=== PATIENT | female | born 1990 | race Caucasian/White ===

== ENCOUNTER 2017-12-30 06:13 | Inpatient (IN) | payer MEDICAID ==
[~2017-12-30] VITALS: Ht 165.1 cm; Wt 99.8 kg
[2017-12-30 06:22] VITALS: BP 110/62
[2017-12-30] MEDS ORDERED: CELEXA40 MG PO (06:26)
[2017-12-30 06:43] LABS: HEMATOCRIT 35.5 % (37.0-47.0); HEMOGLOBIN 12.1 gm/dL (12.0-15.0); MCH 33.3 pg (26.0-34.0); MCHC 34.2 g/dL (28.0-37.0); MCV 97.3 fL (80.0-100.0); NUCLEATED RBCS 0 /100WBC; PLATELET COUNT* 214 thou/uL (150-400); RBC 3.64 mil/uL (4.20-5.00); RDW-CV 12.8 % (10.5-14.5); WBC 15.2 thou/uL (4.0-11.0)
[2017-12-30 06:48] LABS: CALCIUM 8.5 mg/dL (8.5-10.1); CREATININE 0.9 mg/dL (0.6-1.3)
[2017-12-30 06:50] LABS: URINE BILIRUBIN NEGATIVE (Negative); URINE BLOOD 1+ (Negative); URINE CLARITY SL CLOUDY; URINE COLOR YELLOW; URINE GLUCOSE-RANDOM NEGATIVE (Negative); URINE KETONES NEGATIVE (Negative); URINE PROTEIN 2+ (Negative)
[2017-12-30 06:51] LABS: URINE LEUKOCYTES-REFLEX 2+ (Negative); URINE NITRITE-REFLEX POSITIVE (Negative)
[2017-12-30 07:07] LABS: BACTERIA-REFLEX >30 Many /HPF (None Seen); CASTS None Seen /LPF (None Seen); CRYSTALS None Seen /LPF (None Seen); MUCUS None Seen strn/LPF (None Seen); SQUAMOUS 0-3 Few /LPF (0-3); URINE RBC 3-10 Few /HPF (0-2); URINE WBC-REFLEX >25 Many /HPF (0-5)
[2017-12-30 07:36] LABS: ABSOLUTE EOSINOPHILS 0.2 thou/uL (0.0-0.7); ABSOLUTE LYMPHOCYTES 0.5 thou/uL (0.8-5.3); ABSOLUTE MONOCYTES 1.1 thou/uL (0.0-1.2); ABSOLUTE NEUTROPHILS 13.5 thou/uL (1.6-8.1)
[2017-12-30 07:37] LABS: PLATELET ESTIMATE ADEQUATE
[2017-12-30] MEDS ORDERED: HYDROCODON-ACE1 EAC7 PO (08:54)
[2017-12-30] MEDS ORDERED: KEFLEX500 M1 PO (08:54)
[2017-12-30] MEDS ORDERED: K EFFERVESCENT25 MEQ PO (08:56)
[2017-12-30 09:52] VITALS: BP 119/65
[2017-12-30 10:09] VITALS: BP 93/48
[2017-12-30 11:50] LABS: AMP/METHAMP Negative (Negative); BARBITURATES Negative (Negative); BENZODIAZEPINES Negative (Negative); COCAINE Negative (Negative); METHADONE Negative (Negative); OPIATES POSITIVE (Negative); PCP Negative (Negative); THC Negative (Negative)
[2017-12-30 16:46] VITALS: BP 108/55
--- NOTE | 2017-12-30 18:57 | NUR ---
PATIENT ARRIVED ON UNIT FROM ER AT 1130. COMPLETED ADMISSION ASSESSMENT AND HISTORY. REMAINED ALERT AND ORIENTED X'S 4. VITAL SIGNS AND SPO2 STABLE. IV CLEAN, FLUIDS INFUSING. PAIN GETTING UNDER CONTROL SHIFT HAS GONE ON. GAVE PAIN MEDS PIGGYBACKED Q.2 AND PAIN HAS GONE FROM 10/10 TO 7/10. TOLERATED DIET, NO NAUSEA AND VOMITING. UP AD [place]. VOIDED WITHOUT ISSUE. COMPLETED HOURLY ROUNDING. CALL LIGHT WITHIN REACH. WILL CONTINUE TO MONITOR.
[2017-12-31 00:54] VITALS: BP 103/55
--- NOTE | 2017-12-31 04:23 | NUR ---
PATIENT ORIENTED X4 ON HOURLY ROUNDS. UP AD [place]. MEDICATED FOR PAIN WITH BOTH FENTANYL AND HYDROCODONE, PARTIAL RESULTS REPORTED. IVF INFUSING ORDERED. TOLERATING DIET. DENIES NAUSEA. POSITIVE BLOOD CULTURE RESULTS CALLED TO DR. KAUFMAN AT APPROX 1930, ORDERS RECEIVED FOR REPEAT BLOOD CULTURES. WILL CONTINUE TO MONITOR.
[2017-12-31 05:36] LABS: ABSOLUTE EOSINOPHILS 0.1 thou/uL (0.0-0.7); ABSOLUTE LYMPHOCYTES 1.7 thou/uL (0.8-5.3); ABSOLUTE MONOCYTES 1.1 thou/uL (0.0-1.2); ABSOLUTE NEUTROPHILS 8.7 thou/uL (1.6-8.1); BASOPHILS 0.3 %; EOSINOPHILS 0.5 %; HEMATOCRIT 30.5 % (37.0-47.0); HEMOGLOBIN 10.3 gm/dL (12.0-15.0); LYMPHOCYTES 14.7 %; MCH 33.3 pg (26.0-34.0); MCHC 33.9 g/dL (28.0-37.0); MCV 98.1 fL (80.0-100.0); MONOCYTES 9.1 %; NUCLEATED RBCS 0 /100WBC; PLATELET COUNT* 167 thou/uL (150-400); POLYS 75.4 %; RBC 3.11 mil/uL (4.20-5.00); RDW-CV 13.2 % (10.5-14.5); WBC 11.6 thou/uL (4.0-11.0)
[2017-12-31 05:55] LABS: CALCIUM 7.6 mg/dL (8.5-10.1); CREATININE 0.7 mg/dL (0.6-1.3); POTASSIUM 3.5 mmol/L (3.5-5.1)
[2017-12-31 07:44] VITALS: BP 109/52
--- NOTE | 2017-12-31 15:00 | NUR ---
PT.IN ALOT OF PAIN. STATED SHE LIVES WITH HER BOYFRIEND. SHE THINKS SHE HAD INSURANCE UNDER THE AFFORD[employer] C[employer] ACT BUT SAID THEY NEVER RECEIVED INS.CARDS IN MAIL. TOLD HER SHE WOULD NEED TO CALL INSURANCE CO. TO REQUEST NEW CARDS, OUR ADMITTING DEPT HAS NO WAY TO LOOK INSURANCES UP WITH OUT POLICY NUMBERS. GAVE PT. PACKET FOR THE UNINSURED. SHE DID NOT FEEL LIKE TALKING ANY LONGER DUE TO PAIN. CM WILL SEE AGAIN IF NEEDED.
[2017-12-31 15:56] VITALS: BP 115/67
--- NOTE | 2017-12-31 17:50 | NUR ---
ASSUMED CARE OF PATIRNT AFTER MORNING REPORT. ALERT AND ORIENTED X4. ASSESSMENT COMPLETED AND CHARTED. VSS ON ROOM AIR. PATIENT HAS HAD NO COMPLAINTS OF PAIN THIS SHIFT. PAIN HAS BEEN MANAGED WITH PAIN MEDICATION. PATIENT RATED PAIN 9 OUT OF 10 ON A SCALE OF 0-10 EVEN AFTER GIVEN FENTANYL IV AND OXYCODONE PO. PATIENT HAS HAD SUPPORTIVE FAMILY AT BEDSIDE THROUGHOUT SHIFT. FLUIDS AND ANTIBIOTICS INFUSED ORDERED. HOURLY ROUNDS HAVE BEEN MAINTAINED. CALL LIGHT IS WITHIN REACH. NURSING WILL CONTINUE TO MONITOR.
[2017-12-31 20:05] VITALS: BP 113/75
[2018-01-01] VITALS: BP 107/57
[2018-01-01 04:32] LABS: ABSOLUTE EOSINOPHILS 0.1 thou/uL (0.0-0.7); ABSOLUTE LYMPHOCYTES 1.2 thou/uL (0.8-5.3); ABSOLUTE MONOCYTES 0.5 thou/uL (0.0-1.2); ABSOLUTE NEUTROPHILS 5.5 thou/uL (1.6-8.1); BASOPHILS 0.3 %; EOSINOPHILS 1.5 %; HEMATOCRIT 29.6 % (37.0-47.0); LYMPHOCYTES 16.8 %; MCH 33.4 pg (26.0-34.0); MCHC 33.9 g/dL (28.0-37.0); MCV 98.5 fL (80.0-100.0); MONOCYTES 6.3 %; MPV 8.7 fl. (7.2-11.1); NUCLEATED RBCS 0 /100WBC; PLATELET COUNT* 156 thou/uL (150-400); POLYS 75.1 %; RDW-CV 13.1 % (10.5-14.5); WBC 7.4 thou/uL (4.0-11.0)
[2018-01-01 04:49] LABS: ALBUMIN 2.6 g/dL (3.4-5.0); CALCIUM 7.8 mg/dL (8.5-10.1); CREATININE 0.6 mg/dL (0.6-1.3); POTASSIUM 3.4 mmol/L (3.5-5.1); TOTAL BILIRUBIN 0.2 mg/dL (<0.1-1.0); TOTAL PROTEIN 6.3 g/dL (6.4-8.2)
--- NOTE | 2018-01-01 05:41 | NUR ---
PATIENT ALERT AND ORIENTED. VITALS STABLE. RA. LOW GRADE FEVER OVERNIGHT, TYLENOL GIVEN. RATES PAIN A 9/10. PO AND IV PAIN MEDICATION GIVEN. UP INDEPENDENTLY. FAMILY AT BEDSIDE. DENIES NAUSEA. FLUIDS INFUSING PER ORDER. HOURLY ROUNDS. NURSING WILL CONTINUE TO MONITOR.
[2018-01-01 08:05] VITALS: BP 129/76
[2018-01-01 15:02] VITALS: BP 129/76
[2018-01-01] MEDS ORDERED: CIPRO500 MG PO (15:07)
--- NOTE | 2018-01-01 15:53 | NUR ---
ASSUMED CARE OF PATIENT AFTER MORNING REPORT. ALERT AND ORIENTED X4. ASSESSMENT COMPLETED AND CHARTED. VSS ON ROOM AIR. PATIENT HAD MINIMAL COMPLAINTS OF NAUSEA WHICH WAS MANAGED WITH MEDICATION. COMPLAINTS OF CONSTANT PAIN. PATIENT GIVEN DILAUDID EVERY 4 HOURS AND OXYCODONE EVERY 6 HOURS. PATIENT RATED HER PAIN AY 9 OUT OF 10 EVEN AFTER GIVEN MEDICATION. FLUIDS AND ANTIBIOTICS INFUSED ORDERED. PATIENT DISCHARGED AT 1515 WITH EXTENDED FAMILY. ALL PERSONAL BELONGINGS LEFT WITH PATIENT. PRESCRIPTION AND DICHARGE INFORMATION SENT WITH PATIENT UPON DISCHARGE.
== END 2018-01-01 15:15 | disposition home or self-care (01) | DRG 872 ==
LOC: M.ERS 06:13 → M.ORTHSURG 09:19 → M.TBA-ER 09:19 → M.ORTHSURG 09:33
PROVIDERS: Personal Emergency Response Attendant; ADMIT Internal Medicine
DX: A41.9 Sepsis, unspecified organism (principal); N12 Tubulo-interstitial nephritis, not specified as acute or chronic; F32.9 Major depressive disorder, single episode, unspecified; F90.9 Attention-deficit hyperactivity disorder, unspecified type; K21.9 Gastro-esophageal reflux disease without esophagitis; J45.909 Unspecified asthma, uncomplicated; F17.210 Nicotine dependence, cigarettes, uncomplicated; E87.6 Hypokalemia; E86.0 Dehydration; M54.89 Other dorsalgia; Z88.6 Allergy status to analgesic agent; Z88.1 Allergy status to other antibiotic agents; Z88.8 Allergy status to other drugs, medicaments and biological substances

== ENCOUNTER 2018-06-07 18:35 | Emergency (ER) | payer OTHER, MEDICAID ==
[~2018-06-07] VITALS: Ht 165.1 cm; Wt 108.9 kg
[~2018-06-07 18:35] MED LIST: CELEXA40 MG PO; CIPRO500 MG PO; HYDROCODON-ACE1 EAC7 PO; K EFFERVESCENT25 MEQ PO; KEFLEX500 M1 PO
[2018-06-07] MEDS ORDERED: ACCUNEB SO1.25 MG/1 INH (18:50)
[2018-06-07] MEDS ORDERED: NORCO 5-325 TA1 EAC1 PO (18:59)
[2018-06-07] MEDS ORDERED: PENICILLIN VK500 MG PO (18:59)
[2018-06-07 19:08] VITALS: BP 116/78
== END 2018-06-07 19:09 | disposition home or self-care (01) ==
LOC: M.ERS 18:35
DX: K04.7 Periapical abscess without sinus (principal); J45.909 Unspecified asthma, uncomplicated; K21.9 Gastro-esophageal reflux disease without esophagitis; F31.9 Bipolar disorder, unspecified; F90.9 Attention-deficit hyperactivity disorder, unspecified type; F17.210 Nicotine dependence, cigarettes, uncomplicated; Z88.1 Allergy status to other antibiotic agents; Z88.8 Allergy status to other drugs, medicaments and biological substances

== ENCOUNTER 2018-09-01 15:51 | Emergency (ER) | payer OTHER, MEDICAID ==
[~2018-09-01] VITALS: Ht 165.1 cm; Wt 108.9 kg
[~2018-09-01 15:51] MED LIST changes: +ACCUNEB SO1.25 MG/1 INH; +NORCO 5-325 TA1 EAC1 PO; +PENICILLIN VK500 MG PO
[2018-09-01 15:58] VITALS: BP 129/83
== END 2018-09-01 16:36 | disposition home or self-care (01) ==
LOC: M.ERS 15:51
DX: S61.411A Laceration without foreign body of right hand, initial encounter (principal); W26.8XXA Contact with other sharp object(s), not elsewhere classified, initial encounter; Y93.G3 Activity, cooking and baking; Y92.89 Other specified places as the place of occurrence of the external cause; Y99.8 Other external cause status; J45.909 Unspecified asthma, uncomplicated; K21.9 Gastro-esophageal reflux disease without esophagitis; F31.9 Bipolar disorder, unspecified; Z88.1 Allergy status to other antibiotic agents; Z88.8 Allergy status to other drugs, medicaments and biological substances

== ENCOUNTER 2018-10-03 11:44 | Emergency (ER) | payer OTHER, MEDICAID ==
[~2018-10-03] VITALS: Ht 165.1 cm; Wt 108.9 kg
[2018-10-03] MEDS ORDERED: GABAPENTIN 100100 MG PO (11:50)
[2018-10-03] MEDS ORDERED: HYDROCODONE-AP1 EAC6 PO (12:08)
[2018-10-03] MEDS ORDERED: BACTRIM DS TAB1 EACH PO (12:08)
[2018-10-03 12:30] VITALS: BP 121/73
== END 2018-10-03 12:30 | disposition home or self-care (01) ==
LOC: M.ERS 11:44
DX: L03.113 Cellulitis of right upper limb (principal); K21.9 Gastro-esophageal reflux disease without esophagitis; F90.9 Attention-deficit hyperactivity disorder, unspecified type; F31.9 Bipolar disorder, unspecified; J45.909 Unspecified asthma, uncomplicated; F41.0 Panic disorder [episodic paroxysmal anxiety]; F17.210 Nicotine dependence, cigarettes, uncomplicated; Z88.6 Allergy status to analgesic agent; Z88.8 Allergy status to other drugs, medicaments and biological substances; Z88.1 Allergy status to other antibiotic agents; Z86.14 Personal history of Methicillin resistant Staphylococcus aureus infection

== ENCOUNTER 2018-11-12 15:10 | Emergency (ER) | payer OTHER, MEDICAID ==
[~2018-11-12] VITALS: Ht 165.1 cm; Wt 108.9 kg
[~2018-11-12 15:10] MED LIST changes: +BACTRIM DS TAB1 EACH PO; +GABAPENTIN 100100 MG PO; +HYDROCODONE-AP1 EAC6 PO
[2018-11-12 15:15] VITALS: BP 134/72
[2018-11-12] MEDS ORDERED: NORCO 5-325 TA1 EAC1 PO (15:42)
== END 2018-11-12 15:52 | disposition home or self-care (01) ==
LOC: M.ERS 15:10
DX: M27.63 Post-osseointegration mechanical failure of dental implant (principal); K02.9 Dental caries, unspecified; J45.909 Unspecified asthma, uncomplicated; K21.9 Gastro-esophageal reflux disease without esophagitis; F90.9 Attention-deficit hyperactivity disorder, unspecified type; F31.9 Bipolar disorder, unspecified; F41.0 Panic disorder [episodic paroxysmal anxiety]; Z88.8 Allergy status to other drugs, medicaments and biological substances; Z88.6 Allergy status to analgesic agent; Z86.14 Personal history of Methicillin resistant Staphylococcus aureus infection

== ENCOUNTER 2019-01-28 17:14 | Emergency (ER) | payer OTHER, MEDICAID ==
[~2019-01-28] VITALS: Ht 165.1 cm; Wt 108.9 kg
[~2019-01-28 17:14] MED LIST changes: +ROBAXIN500 MG PO
[2019-01-28 18:40] LABS: INFLUENZA B ANTIGEN None Detected (None Detect)
[2019-01-28] MEDS ORDERED: VENTOLIN HFA 1818 GM INH (18:50)
[2019-01-28] MEDS ORDERED: ACETAMINOPHEN-1 EAC1 PO (18:50)
[2019-01-28] MEDS ORDERED: OSELB75 PO (18:50)
[2019-01-28] MEDS ORDERED: ONDANSETRON HCL4 M2 PO (18:50)
[2019-01-28 19:15] VITALS: BP 120/76
== END 2019-01-28 19:15 | disposition home or self-care (01) ==
LOC: M.ERS 17:14
PROVIDERS: Nurse Practitioner Family
DX: J10.1 Influenza due to other identified influenza virus with other respiratory manifestations (principal); J45.909 Unspecified asthma, uncomplicated; K21.9 Gastro-esophageal reflux disease without esophagitis; F90.9 Attention-deficit hyperactivity disorder, unspecified type; F31.9 Bipolar disorder, unspecified; F41.0 Panic disorder [episodic paroxysmal anxiety]; Z88.8 Allergy status to other drugs, medicaments and biological substances; Z88.1 Allergy status to other antibiotic agents; Z88.6 Allergy status to analgesic agent

== ENCOUNTER 2019-08-06 20:42 | Emergency (ER) | payer OTHER ==
[~2019-08-06] VITALS: Ht 165.1 cm; Wt 107.5 kg
[~2019-08-06 20:42] MED LIST changes: +ACETAMINOPHEN-1 EAC1 PO; +ONDANSETRON HCL4 M2 PO; +OSELB75 PO; +VENTOLIN HFA 1818 GM INH
[2019-08-06] MEDS ORDERED: PRENATAL PO (20:54)
[2019-08-06 21:16] LABS: ABSOLUTE BASOPHILS 0.2 thou/uL (0.0-0.2); ABSOLUTE EOSINOPHILS 0.6 thou/uL (0.0-0.7); ABSOLUTE LYMPHOCYTES 2.8 thou/uL (0.8-5.3); ABSOLUTE MONOCYTES 0.8 thou/uL (0.0-1.2); ABSOLUTE NEUTROPHILS 7.1 thou/uL (1.6-8.1); BASOPHILS 1.5 %; EOSINOPHILS 5.6 %; HEMOGLOBIN 12.5 gm/dL (12.0-15.0); LYMPHOCYTES 24.7 %; MCH 33.4 pg (26.0-34.0); MCHC 34.8 g/dL (28.0-37.0); MONOCYTES 6.8 %; NUCLEATED RBCS 0 /100WBC; PLATELET COUNT* 210 thou/uL (150-400); POLYS 61.4 %; RBC 3.76 mil/uL (4.20-5.00); RDW-CV 13.2 % (10.5-14.5); WBC 11.5 thou/uL (4.0-11.0)
[2019-08-06 21:25] LABS: CALCIUM 9.1 mg/dL (8.5-10.1); CREATININE 0.8 mg/dL (0.6-1.3); POTASSIUM 3.6 mmol/L (3.5-5.1)
[2019-08-06 21:30] LABS: ALBUMIN 3.5 g/dL (3.4-5.0); TOTAL BILIRUBIN 0.1 mg/dL (<0.1-1.0); TOTAL PROTEIN 6.9 g/dL (6.4-8.2)
[2019-08-06] MEDS ORDERED: [UNRECOGNIZED DRUG - OTHER] PO (23:01)
[2019-08-06 23:49] VITALS: BP 111/60
== END 2019-08-06 23:51 | disposition home or self-care (01) ==
LOC: M.ERS 20:42
PROVIDERS: Personal Emergency Response Attendant
DX: O21.0 Mild hyperemesis gravidarum (principal); J45.909 Unspecified asthma, uncomplicated; K21.9 Gastro-esophageal reflux disease without esophagitis; F90.9 Attention-deficit hyperactivity disorder, unspecified type; F31.9 Bipolar disorder, unspecified; F41.0 Panic disorder [episodic paroxysmal anxiety]; Z88.8 Allergy status to other drugs, medicaments and biological substances; Z88.6 Allergy status to analgesic agent; Z3A.01 Less than 8 weeks gestation of pregnancy

== ENCOUNTER 2019-08-13 18:15 | Emergency (ER) | payer OTHER ==
[~2019-08-13] VITALS: Ht 165.1 cm; Wt 107.5 kg
[~2019-08-13 18:15] MED LIST changes: +PRENATAL PO; +[UNRECOGNIZED DRUG - OTHER] PO
[2019-08-13 18:23] VITALS: BP 123/74
== END 2019-08-13 19:17 | disposition left against medical advice (07) ==
LOC: M.ERS 18:15
DX: Z53.21 Procedure and treatment not carried out due to patient leaving prior to being seen by health care provider (principal)

== ENCOUNTER 2019-09-23 18:53 | Emergency (ER) | payer OTHER, MEDICAID ==
[~2019-09-23] VITALS: Ht 165.1 cm; Wt 108.0 kg
[2019-09-23 19:29] LABS: URINE BILIRUBIN NEGATIVE (Negative); URINE BLOOD TRACE (Negative); URINE CLARITY CLEAR; URINE COLOR YELLOW; URINE GLUCOSE-RANDOM NEGATIVE (Negative); URINE KETONES NEGATIVE (Negative); URINE LEUKOCYTES-REFLEX 1+ (Negative); URINE NITRITE-REFLEX NEGATIVE (Negative); URINE PROTEIN NEGATIVE (Negative); URINE UROBILINOGEN 0.2 E.U./dl (0.2-1.0)
[2019-09-23 19:33] LABS: AMP/METHAMP Negative (Negative); BARBITURATES Negative (Negative); BENZODIAZEPINES Negative (Negative); COCAINE Negative (Negative); METHADONE Negative (Negative); OPIATES POSITIVE (Negative); PCP Negative (Negative); THC Negative (Negative)
[2019-09-23 19:39] LABS: SQUAMOUS >10 Many /LPF (0-3)
[2019-09-23 19:40] LABS: CASTS None Seen /LPF (None Seen); CRYSTALS None Seen /LPF (None Seen); MUCUS 0-3 Light strn/LPF (None Seen); URINE RBC 0-2 Rare /HPF (0-2)
[2019-09-23 19:45] LABS: ABSOLUTE EOSINOPHILS 0.2 thou/uL (0.0-0.7); ABSOLUTE LYMPHOCYTES 2.1 thou/uL (0.8-5.3); ABSOLUTE MONOCYTES 0.7 thou/uL (0.0-1.2); ABSOLUTE NEUTROPHILS 7.9 thou/uL (1.6-8.1); BASOPHILS 0.4 %; EOSINOPHILS 1.5 %; HEMATOCRIT 33.4 % (37.0-47.0); LYMPHOCYTES 19.3 %; MCH 34.9 pg (26.0-34.0); MCHC 36.1 g/dL (28.0-37.0); MCV 96.8 fL (80.0-100.0); MONOCYTES 6.2 %; MPV 8.9 fl. (7.2-11.1); NUCLEATED RBCS 0 /100WBC; PLATELET COUNT* 202 thou/uL (150-400); POLYS 72.6 %; RBC 3.45 mil/uL (4.20-5.00); RDW-CV 12.8 % (10.5-14.5); WBC 10.9 thou/uL (4.0-11.0)
[2019-09-23 19:56] LABS: CALCIUM 8.3 mg/dL (8.5-10.1); CREATININE 0.5 mg/dL (0.6-1.3); POTASSIUM 3.5 mmol/L (3.5-5.1)
[2019-09-23 20:00] LABS: ALBUMIN 3.1 g/dL (3.4-5.0); TOTAL BILIRUBIN 0.1 mg/dL (<0.1-1.0); TOTAL PROTEIN 6.8 g/dL (6.4-8.2)
[2019-09-24 00:04] VITALS: BP 100/53
== END 2019-09-24 00:06 | disposition short-term general hospital (02) ==
LOC: M.ERS 18:53
PROVIDERS: Emergency Medicine
DX: O23.41 Unspecified infection of urinary tract in pregnancy, first trimester (principal); O99.341 Other mental disorders complicating pregnancy, first trimester; O99.611 Diseases of the digestive system complicating pregnancy, first trimester; O99.331 Smoking (tobacco) complicating pregnancy, first trimester; Z88.5 Allergy status to narcotic agent; Z88.6 Allergy status to analgesic agent; Z88.8 Allergy status to other drugs, medicaments and biological substances; Z3A.13 13 weeks gestation of pregnancy; Z79.899 Other long term (current) drug therapy

== ENCOUNTER 2019-10-19 19:51 | Emergency (ER) | payer OTHER, MEDICAID ==
[~2019-10-19] VITALS: Ht 165.1 cm; Wt 108.9 kg
[2019-10-19] MEDS ORDERED: KEFLEX500 M2 PO (20:02)
[2019-10-19] MEDS ORDERED: AMOXICILLIN 50500 MG PO (20:10)
[2019-10-19] MEDS ORDERED: DELSYM30 MG/5 M1 PO (20:13)
[2019-10-19 20:21] LABS: URINE BILIRUBIN NEGATIVE (Negative); URINE BLOOD TRACE (Negative); URINE CLARITY SL CLOUDY; URINE COLOR YELLOW; URINE GLUCOSE-RANDOM NEGATIVE (Negative); URINE KETONES NEGATIVE (Negative); URINE LEUKOCYTES-REFLEX 1+ (Negative); URINE NITRITE-REFLEX NEGATIVE (Negative); URINE PROTEIN NEGATIVE (Negative); URINE UROBILINOGEN 0.2 E.U./dl (0.2-1.0)
[2019-10-19 20:26] LABS: SQUAMOUS >10 Many /LPF (0-3)
[2019-10-19 20:27] LABS: BACTERIA-REFLEX >30 Many /HPF (None Seen); URINE RBC 3-10 Few /HPF (0-2); URINE WBC-REFLEX 6-15 Few /HPF (0-5)
[2019-10-19 20:28] LABS: AMORPHOUS URATES Few /LPF (None Seen); CASTS None Seen /LPF (None Seen); YEAST-REFLEX Present (None Seen)
[2019-10-19 20:29] LABS: MUCUS 4-6 Moderate strn/LPF (None Seen)
[2019-10-19 20:32] VITALS: BP 138/71
== END 2019-10-19 20:35 | disposition home or self-care (01) ==
LOC: M.ERS 19:51
PROVIDERS: Nurse Practitioner Psychiatric/Mental Health
DX: O99.512 Diseases of the respiratory system complicating pregnancy, second trimester (principal); O26.892 Other specified pregnancy related conditions, second trimester; R59.1 Generalized enlarged lymph nodes; O99.612 Diseases of the digestive system complicating pregnancy, second trimester; O99.342 Other mental disorders complicating pregnancy, second trimester; O99.332 Smoking (tobacco) complicating pregnancy, second trimester; Z86.14 Personal history of Methicillin resistant Staphylococcus aureus infection; Z88.5 Allergy status to narcotic agent; Z88.6 Allergy status to analgesic agent; Z88.8 Allergy status to other drugs, medicaments and biological substances; Z79.899 Other long term (current) drug therapy; Z3A.16 16 weeks gestation of pregnancy

== ENCOUNTER 2020-05-06 00:58 | Emergency (ER) | payer OTHER, MEDICAID ==
[~2020-05-06] VITALS: Ht 165.1 cm; Wt 88.0 kg
[~2020-05-06 00:58] MED LIST changes: +AMOXICILLIN 50500 MG PO; +DELSYM30 MG/5 M1 PO; +KEFLEX500 M2 PO
[2020-05-06] MEDS ORDERED: CELEXA 20 MG TA20 MG PO (01:09)
[2020-05-06 01:11] LABS: URINE BILIRUBIN NEGATIVE (Negative); URINE BLOOD NEGATIVE (Negative); URINE CLARITY CLEAR; URINE COLOR YELLOW; URINE GLUCOSE-RANDOM NEGATIVE (Negative); URINE KETONES NEGATIVE (Negative); URINE LEUKOCYTES-REFLEX TRACE (Negative); URINE NITRITE-REFLEX NEGATIVE (Negative); URINE PROTEIN NEGATIVE (Negative); URINE SPECIFIC GRAVITY 1.015 (1.005-1.030); URINE UROBILINOGEN 0.2 E.U./dl (0.2-1.0)
[2020-05-06 01:21] LABS: BACTERIA-REFLEX 1-9 Few /HPF (None Seen); CASTS None Seen /LPF (None Seen); CRYSTALS None Seen /LPF (None Seen); MUCUS 0-3 Light strn/LPF (None Seen); SQUAMOUS 0-3 Few /LPF (0-3); URINE RBC 0-2 Rare /HPF (0-2); URINE WBC-REFLEX 0-5 Rare /HPF (0-5)
[2020-05-06 01:33] LABS: ABSOLUTE BASOPHILS 0.2 thou/uL (0.0-0.2); ABSOLUTE EOSINOPHILS 0.5 thou/uL (0.0-0.7); ABSOLUTE LYMPHOCYTES 3.8 thou/uL (0.8-5.3); ABSOLUTE MONOCYTES 0.7 thou/uL (0.0-1.2); ABSOLUTE NEUTROPHILS 10.6 thou/uL (1.6-8.1); HEMATOCRIT 33.8 % (37.0-47.0); HEMOGLOBIN 11.7 gm/dL (12.0-15.0); MCH 33.4 pg (26.0-34.0); MCHC 34.6 g/dL (28.0-37.0); MCV 96.4 fL (80.0-100.0); MONOCYTES 4.4 %; MPV 9.4 fl. (7.2-11.1); NUCLEATED RBCS 0 /100WBC; PLATELET COUNT* 250 thou/uL (150-400); POLYS 67.6 %; RDW-CV 13.3 % (10.5-14.5); WBC 15.7 thou/uL (4.0-11.0)
[2020-05-06 01:38] LABS: CALCIUM 8.5 mg/dL (8.5-10.1); CREATININE 0.9 mg/dL (0.6-1.3); POTASSIUM 3.4 mmol/L (3.5-5.1)
[2020-05-06 02:20] LABS: AMP/METHAMP Negative (Negative); BARBITURATES Negative (Negative); BENZODIAZEPINES Negative (Negative); COCAINE Negative (Negative); METHADONE Negative (Negative); OPIATES POSITIVE (Negative); PCP Negative (Negative); THC Negative (Negative)
[2020-05-06] MEDS ORDERED: MACROBID 100 M100 M1 PO (03:25)
[2020-05-06] MEDS ORDERED: LORCET 5-325 M1 EACH PO (03:25)
[2020-05-06 03:35] VITALS: BP 99/60
== END 2020-05-06 03:35 | disposition home or self-care (01) ==
LOC: M.ERS 00:58
PROVIDERS: Emergency Medicine
DX: R10.31 Right lower quadrant pain (principal); J45.909 Unspecified asthma, uncomplicated; K21.9 Gastro-esophageal reflux disease without esophagitis; Z88.5 Allergy status to narcotic agent; Z88.1 Allergy status to other antibiotic agents; Z88.6 Allergy status to analgesic agent; Z88.8 Allergy status to other drugs, medicaments and biological substances; Z79.899 Other long term (current) drug therapy; Z87.442 Personal history of urinary calculi

== ENCOUNTER 2020-05-28 21:34 | Emergency (ER) | payer OTHER, MEDICAID ==
[~2020-05-28] VITALS: Ht 165.1 cm; Wt 89.8 kg
[~2020-05-28 21:34] MED LIST changes: +CELEXA 20 MG TA20 MG PO; +LORCET 5-325 M1 EACH PO; +MACROBID 100 M100 M1 PO
[2020-05-28 22:11] LABS: ABSOLUTE BASOPHILS 0.1 thou/uL (0.0-0.2); ABSOLUTE EOSINOPHILS 0.5 thou/uL (0.0-0.7); ABSOLUTE LYMPHOCYTES 3.3 thou/uL (0.8-5.3); ABSOLUTE MONOCYTES 0.6 thou/uL (0.0-1.2); ABSOLUTE NEUTROPHILS 6.2 thou/uL (1.6-8.1); BASOPHILS 0.8 %; EOSINOPHILS 4.2 %; HEMATOCRIT 36.8 % (37.0-47.0); HEMOGLOBIN 12.6 gm/dL (12.0-15.0); MCH 32.9 pg (26.0-34.0); MCHC 34.3 g/dL (28.0-37.0); MCV 95.9 fL (80.0-100.0); MONOCYTES 5.6 %; MPV 9.1 fl. (7.2-11.1); NUCLEATED RBCS 0 /100WBC; PLATELET COUNT* 273 thou/uL (150-400); POLYS 58.4 %; RBC 3.84 mil/uL (4.20-5.00); RDW-CV 13.7 % (10.5-14.5); WBC 10.7 thou/uL (4.0-11.0)
[2020-05-28 22:15] LABS: CALCIUM 8.4 mg/dL (8.5-10.1); POTASSIUM 3.3 mmol/L (3.5-5.1)
[2020-05-28 22:22] LABS: ALBUMIN 3.7 g/dL (3.4-5.0); TOTAL BILIRUBIN 0.2 mg/dL (<0.1-1.0); TOTAL PROTEIN 7.2 g/dL (6.4-8.2)
[2020-05-28 22:45] LABS: URINE BILIRUBIN NEGATIVE (Negative); URINE BLOOD 1+ (Negative); URINE CLARITY CLEAR; URINE COLOR YELLOW; URINE GLUCOSE-RANDOM NEGATIVE (Negative); URINE KETONES NEGATIVE (Negative); URINE LEUKOCYTES-REFLEX NEGATIVE (Negative); URINE NITRITE-REFLEX NEGATIVE (Negative); URINE PROTEIN NEGATIVE (Negative); URINE UROBILINOGEN 0.2 E.U./dl (0.2-1.0)
[2020-05-28 23:01] LABS: CASTS None Seen /LPF (None Seen); MUCUS 4-6 Moderate strn/LPF (None Seen); SQUAMOUS >10 Many /LPF (0-3)
[2020-05-28 23:03] LABS: BACTERIA-REFLEX 1-9 Few /HPF (None Seen); CRYSTALS None Seen /LPF (None Seen); URINE RBC 0-2 Rare /HPF (0-2); URINE WBC-REFLEX 0-5 Rare /HPF (0-5)
[2020-05-28 23:07] LABS: AMP/METHAMP Negative (Negative); BARBITURATES Negative (Negative); BENZODIAZEPINES Negative (Negative); COCAINE Negative (Negative); METHADONE Negative (Negative); OPIATES POSITIVE (Negative); PCP Negative (Negative); THC Negative (Negative)
[2020-05-28 23:35] VITALS: BP 112/70
== END 2020-05-28 23:37 | disposition home or self-care (01) ==
LOC: M.ERS 21:34
PROVIDERS: Personal Emergency Response Attendant
DX: G89.18 Other acute postprocedural pain (principal); R10.31 Right lower quadrant pain; J45.909 Unspecified asthma, uncomplicated; K21.9 Gastro-esophageal reflux disease without esophagitis; Z88.5 Allergy status to narcotic agent; Z88.1 Allergy status to other antibiotic agents; Z88.6 Allergy status to analgesic agent; Z88.8 Allergy status to other drugs, medicaments and biological substances; Z86.14 Personal history of Methicillin resistant Staphylococcus aureus infection; Z87.442 Personal history of urinary calculi; Z79.899 Other long term (current) drug therapy

== ENCOUNTER 2020-08-15 21:48 | Emergency (ER) | payer OTHER, MEDICAID ==
[~2020-08-15] VITALS: Ht 165.1 cm; Wt 93.0 kg
[2020-08-15] MEDS ORDERED: MEDROLDOSEPACK PO (23:36)
[2020-08-15] MEDS ORDERED: HYDROCODON-ACE1 EAC7 PO (23:36)
[2020-08-15] MEDS ORDERED: CYCLOBENZAPRINE5 MG PO (23:36)
[2020-08-15 23:52] VITALS: BP 147/82
== END 2020-08-15 23:53 | disposition home or self-care (01) ==
LOC: M.ERS 21:48
DX: M54.5 Low back pain (principal); E28.2 Polycystic ovarian syndrome; K21.9 Gastro-esophageal reflux disease without esophagitis; J45.909 Unspecified asthma, uncomplicated; F31.9 Bipolar disorder, unspecified; F41.9 Anxiety disorder, unspecified; F17.210 Nicotine dependence, cigarettes, uncomplicated; Z86.14 Personal history of Methicillin resistant Staphylococcus aureus infection; Z87.442 Personal history of urinary calculi; Z88.1 Allergy status to other antibiotic agents; Z88.6 Allergy status to analgesic agent; Z88.8 Allergy status to other drugs, medicaments and biological substances

== ENCOUNTER 2021-01-15 18:17 | Emergency (ER) | payer OTHER, MEDICAID ==
[~2021-01-15] VITALS: Ht 165.1 cm; Wt 99.8 kg
[~2021-01-15 18:17] MED LIST changes: +CYCLOBENZAPRINE5 MG PO; +MEDROLDOSEPACK PO
[2021-01-15] MEDS ORDERED: NORCO5 PO (19:30)
[2021-01-15] MEDS ORDERED: ZANAFLEX4 MG PO (19:30)
[2021-01-15 19:45] VITALS: BP 109/76
== END 2021-01-15 19:46 ==
LOC: M.ERS 18:17
DX: S46.812A Strain of other muscles, fascia and tendons at shoulder and upper arm level, left arm, initial encounter (principal); J45.909 Unspecified asthma, uncomplicated; K21.9 Gastro-esophageal reflux disease without esophagitis; Z86.14 Personal history of Methicillin resistant Staphylococcus aureus infection; Z87.442 Personal history of urinary calculi; Z98.51 Tubal ligation status; Z88.5 Allergy status to narcotic agent; Z88.1 Allergy status to other antibiotic agents; Z88.8 Allergy status to other drugs, medicaments and biological substances; X50.9XXA Other and unspecified overexertion or strenuous movements or postures, initial encounter; Y93.89 Activity, other specified; Y92.89 Other specified places as the place of occurrence of the external cause; Y99.8 Other external cause status

== ENCOUNTER 2021-03-24 22:16 | Emergency (ER) | payer OTHER, MEDICAID ==
[~2021-03-24] VITALS: Ht 165.1 cm; Wt 95.3 kg
[~2021-03-24 22:16] MED LIST changes: +NORCO5 PO; +ZANAFLEX4 MG PO
[2021-03-24] MEDS ORDERED: DEPO-PROVE150 MG/11 IM (23:02)
[2021-03-25 00:04] LABS: URINE BILIRUBIN NEGATIVE (Negative); URINE BLOOD NEGATIVE (Negative); URINE CLARITY CLEAR; URINE COLOR YELLOW; URINE GLUCOSE-RANDOM NEGATIVE (Negative); URINE KETONES NEGATIVE (Negative); URINE LEUKOCYTES-REFLEX NEGATIVE (Negative); URINE NITRITE-REFLEX NEGATIVE (Negative); URINE PROTEIN NEGATIVE (Negative); URINE SPECIFIC GRAVITY 1.015 (1.005-1.030); URINE UROBILINOGEN 0.2 E.U./dl (0.2-1.0)
[2021-03-25 00:11] LABS: HEMATOCRIT 39.4 % (37.0-47.0); HEMOGLOBIN 13.3 gm/dL (12.0-15.0); MCH 32.9 pg (26.0-34.0); MCHC 33.7 g/dL (28.0-37.0); MCV 97.6 fL (80.0-100.0); MPV 8.7 fl. (7.2-11.1); RBC 4.04 mil/uL (4.20-5.00); RDW-CV 12.8 % (10.5-14.5); WBC 10.7 thou/uL (4.0-11.0)
[2021-03-25 00:11] LABS: AMP/METHAMP Negative (Negative); BARBITURATES Negative (Negative); BENZODIAZEPINES Negative (Negative); COCAINE Negative (Negative); METHADONE Negative (Negative); OPIATES Negative (Negative); PCP Negative (Negative); THC Negative (Negative)
[2021-03-25 00:18] LABS: CREATININE 0.8 mg/dL (0.6-1.3); POTASSIUM 3.6 mmol/L (3.5-5.1)
[2021-03-25 00:23] LABS: ALBUMIN 3.6 g/dL (3.4-5.0); TOTAL BILIRUBIN 0.1 mg/dL (<0.1-1.0); TOTAL PROTEIN 6.9 g/dL (6.4-8.2)
[2021-03-25] MEDS ORDERED: ZOFRAN ODT4 MG PO (01:48)
[2021-03-25] MEDS ORDERED: BUTALB-APAP-CA1 EACH PO (01:48)
[2021-03-25 02:33] VITALS: BP 114/77
== END 2021-03-25 02:33 | disposition home or self-care (01) ==
LOC: M.ERS 22:16
PROVIDERS: Personal Emergency Response Attendant
DX: G43.909 Migraine, unspecified, not intractable, without status migrainosus (principal); R10.11 Right upper quadrant pain; J45.909 Unspecified asthma, uncomplicated; K21.9 Gastro-esophageal reflux disease without esophagitis; Z88.5 Allergy status to narcotic agent; Z88.1 Allergy status to other antibiotic agents; Z88.6 Allergy status to analgesic agent; Z88.8 Allergy status to other drugs, medicaments and biological substances; Z86.14 Personal history of Methicillin resistant Staphylococcus aureus infection; Z87.442 Personal history of urinary calculi; Z98.51 Tubal ligation status; Z79.899 Other long term (current) drug therapy

== ENCOUNTER 2021-03-27 16:20 | Emergency (ER) | payer OTHER, MEDICAID ==
[~2021-03-27] VITALS: Ht 165.1 cm; Wt 95.3 kg
[~2021-03-27 16:20] MED LIST changes: +BUTALB-APAP-CA1 EACH PO; +DEPO-PROVE150 MG/11 IM; +ZOFRAN ODT4 MG PO
[2021-03-27 16:37] LABS: URINE BILIRUBIN NEGATIVE (Negative); URINE BLOOD NEGATIVE (Negative); URINE CLARITY CLEAR; URINE COLOR YELLOW; URINE GLUCOSE-RANDOM NEGATIVE (Negative); URINE KETONES NEGATIVE (Negative); URINE LEUKOCYTES-REFLEX NEGATIVE (Negative); URINE NITRITE-REFLEX NEGATIVE (Negative); URINE PROTEIN NEGATIVE (Negative); URINE UROBILINOGEN 0.2 E.U./dl (0.2-1.0)
[2021-03-27 16:51] LABS: ABSOLUTE BASOPHILS 0.1 thou/uL (0.0-0.2); ABSOLUTE EOSINOPHILS 0.4 thou/uL (0.0-0.7); ABSOLUTE LYMPHOCYTES 2.2 thou/uL (0.8-5.3); ABSOLUTE MONOCYTES 0.7 thou/uL (0.0-1.2); ABSOLUTE NEUTROPHILS 6.4 thou/uL (1.6-8.1); BASOPHILS 0.8 %; EOSINOPHILS 4.1 %; HEMATOCRIT 40.4 % (37.0-47.0); HEMOGLOBIN 13.7 gm/dL (12.0-15.0); LYMPHOCYTES 22.4 %; MCH 33.1 pg (26.0-34.0); MCHC 33.8 g/dL (28.0-37.0); MCV 97.9 fL (80.0-100.0); MONOCYTES 7.1 %; MPV 8.6 fl. (7.2-11.1); NUCLEATED RBCS 0 /100WBC; PLATELET COUNT* 233 thou/uL (150-400); POLYS 65.6 %; RBC 4.13 mil/uL (4.20-5.00); RDW-CV 12.8 % (10.5-14.5); WBC 9.7 thou/uL (4.0-11.0)
[2021-03-27 16:59] LABS: CALCIUM 8.6 mg/dL (8.5-10.1); CREATININE 0.7 mg/dL (0.6-1.3); POTASSIUM 3.7 mmol/L (3.5-5.1)
[2021-03-27 17:09] LABS: ALBUMIN 3.9 g/dL (3.4-5.0); TOTAL BILIRUBIN 0.2 mg/dL (<0.1-1.0); TOTAL PROTEIN 7.5 g/dL (6.4-8.2)
[2021-03-27] MEDS ORDERED: LIDODERM1 EACH TOP (18:39)
[2021-03-27] MEDS ORDERED: METHOCARBAMOL500 M2 PO (18:39)
[2021-03-27 19:08] VITALS: BP 111/51
== END 2021-03-27 19:09 | disposition home or self-care (01) ==
LOC: M.ERS 16:20
PROVIDERS: Nurse Practitioner Family
DX: R10.11 Right upper quadrant pain (principal); J45.909 Unspecified asthma, uncomplicated; K21.9 Gastro-esophageal reflux disease without esophagitis; F90.9 Attention-deficit hyperactivity disorder, unspecified type; F31.9 Bipolar disorder, unspecified; F41.0 Panic disorder [episodic paroxysmal anxiety]; Z87.442 Personal history of urinary calculi; Z98.51 Tubal ligation status; Z86.14 Personal history of Methicillin resistant Staphylococcus aureus infection; Z87.42 Personal history of other diseases of the female genital tract; Z79.899 Other long term (current) drug therapy; Z88.5 Allergy status to narcotic agent; Z88.8 Allergy status to other drugs, medicaments and biological substances; Z88.1 Allergy status to other antibiotic agents; Z88.6 Allergy status to analgesic agent

== ENCOUNTER 2021-05-16 17:08 | Emergency (ER) | payer OTHER, MEDICAID ==
[~2021-05-16] VITALS: Ht 165.1 cm; Wt 108.9 kg
[~2021-05-16 17:08] MED LIST changes: +LIDODERM1 EACH TOP; +METHOCARBAMOL500 M2 PO
[2021-05-16] MEDS ORDERED: MEDROLDOSEPACK PO (18:37)
[2021-05-16] MEDS ORDERED: FLEXERIL PO (18:37)
[2021-05-16 18:46] VITALS: BP 117/80
== END 2021-05-16 18:48 | disposition home or self-care (01) ==
LOC: M.ERS 17:08
DX: M25.511 Pain in right shoulder (principal); K21.9 Gastro-esophageal reflux disease without esophagitis; Z88.5 Allergy status to narcotic agent; Z88.1 Allergy status to other antibiotic agents; Z88.6 Allergy status to analgesic agent; E28.2 Polycystic ovarian syndrome; Z87.442 Personal history of urinary calculi; Z98.51 Tubal ligation status; Z79.899 Other long term (current) drug therapy; W01.0XXA Fall on same level from slipping, tripping and stumbling without subsequent striking against object, initial encounter; Y93.89 Activity, other specified; Y92.89 Other specified places as the place of occurrence of the external cause; Y99.8 Other external cause status

== ENCOUNTER 2021-09-04 12:10 | Emergency (ER) | payer OTHER, MEDICAID ==
[~2021-09-04] VITALS: Ht 165.1 cm; Wt 99.8 kg
[~2021-09-04 12:10] MED LIST changes: +FLEXERIL PO
[2021-09-04 12:47] LABS: URINE BILIRUBIN NEGATIVE (Negative); URINE BLOOD NEGATIVE (Negative); URINE CLARITY CLEAR; URINE COLOR YELLOW; URINE GLUCOSE-RANDOM NEGATIVE (Negative); URINE KETONES NEGATIVE (Negative); URINE LEUKOCYTES-REFLEX NEGATIVE (Negative); URINE NITRITE-REFLEX NEGATIVE (Negative); URINE PROTEIN NEGATIVE (Negative); URINE UROBILINOGEN 0.2 E.U./dl (0.2-1.0)
[2021-09-04 12:57] LABS: ABSOLUTE BASOPHILS 0.1 thou/uL (0.0-0.2); ABSOLUTE EOSINOPHILS 0.2 thou/uL (0.0-0.7); ABSOLUTE LYMPHOCYTES 2.1 thou/uL (0.8-5.3); ABSOLUTE MONOCYTES 0.5 thou/uL (0.0-1.2); ABSOLUTE NEUTROPHILS 5.5 thou/uL (1.6-8.1); BASOPHILS 0.9 %; EOSINOPHILS 2.7 %; HEMATOCRIT 39.6 % (37.0-47.0); HEMOGLOBIN 13.6 gm/dL (12.0-15.0); LYMPHOCYTES 25.3 %; MCH 32.8 pg (26.0-34.0); MCHC 34.3 g/dL (28.0-37.0); MCV 95.7 fL (80.0-100.0); MONOCYTES 5.8 %; MPV 9.1 fl. (7.2-11.1); NUCLEATED RBCS 0 /100WBC; PLATELET COUNT* 226 thou/uL (150-400); POLYS 65.3 %; RBC 4.14 mil/uL (4.20-5.00); RDW-CV 12.7 % (10.5-14.5); WBC 8.5 thou/uL (4.0-11.0)
[2021-09-04 13:06] LABS: CALCIUM 8.5 mg/dL (8.5-10.1); CREATININE 0.8 mg/dL (0.6-1.3); POTASSIUM 3.8 mmol/L (3.5-5.1)
[2021-09-04 13:10] LABS: ALBUMIN 3.9 g/dL (3.4-5.0); TOTAL BILIRUBIN 0.2 mg/dL (<0.1-1.0); TOTAL PROTEIN 7.3 g/dL (6.4-8.2)
[2021-09-04] MEDS ORDERED: ONDANSETRON ODT4 MG PO (13:22)
[2021-09-04] MEDS ORDERED: LOPERAMIDE 2 MG2 M1 PO (13:22)
[2021-09-04 13:39] VITALS: BP 109/66
== END 2021-09-04 13:40 | disposition home or self-care (01) ==
LOC: M.ERS 12:10
PROVIDERS: Physician Assistant
DX: R11.2 Nausea with vomiting, unspecified (principal); R19.7 Diarrhea, unspecified; R10.13 Epigastric pain; K21.9 Gastro-esophageal reflux disease without esophagitis; F32.9 Major depressive disorder, single episode, unspecified; F90.9 Attention-deficit hyperactivity disorder, unspecified type; F41.0 Panic disorder [episodic paroxysmal anxiety]; Z86.14 Personal history of Methicillin resistant Staphylococcus aureus infection; Z87.442 Personal history of urinary calculi; Z98.51 Tubal ligation status; Z90.49 Acquired absence of other specified parts of digestive tract; Z79.899 Other long term (current) drug therapy; Z88.5 Allergy status to narcotic agent; Z88.8 Allergy status to other drugs, medicaments and biological substances; Z88.1 Allergy status to other antibiotic agents; Z88.6 Allergy status to analgesic agent

== ENCOUNTER 2021-09-23 15:50 | Emergency (ER) | payer OTHER, MEDICAID ==
[~2021-09-23] VITALS: Ht 165.1 cm; Wt 99.8 kg
[~2021-09-23 15:50] MED LIST changes: +LOPERAMIDE 2 MG2 M1 PO; +ONDANSETRON ODT4 MG PO
[2021-09-23] MEDS ORDERED: ALBUTEROL2.5 MG/0.1 INH (16:04)
[2021-09-23] MEDS ORDERED: FLEXERIL PO (17:00)
[2021-09-23 17:21] VITALS: BP 145/85
== END 2021-09-23 17:21 | disposition home or self-care (01) ==
LOC: M.ERS 15:50
DX: S39.012A Strain of muscle, fascia and tendon of lower back, initial encounter (principal); M53.3 Sacrococcygeal disorders, not elsewhere classified; J45.909 Unspecified asthma, uncomplicated; K21.9 Gastro-esophageal reflux disease without esophagitis; F90.9 Attention-deficit hyperactivity disorder, unspecified type; F31.9 Bipolar disorder, unspecified; F41.0 Panic disorder [episodic paroxysmal anxiety]; F17.210 Nicotine dependence, cigarettes, uncomplicated; Z87.442 Personal history of urinary calculi; Z90.49 Acquired absence of other specified parts of digestive tract; Z98.51 Tubal ligation status; Z79.899 Other long term (current) drug therapy; Z88.5 Allergy status to narcotic agent; Z88.8 Allergy status to other drugs, medicaments and biological substances; Z86.14 Personal history of Methicillin resistant Staphylococcus aureus infection; W19.XXXA Unspecified fall, initial encounter; Y93.89 Activity, other specified; Y92.89 Other specified places as the place of occurrence of the external cause; Y99.8 Other external cause status